=== PATIENT | female | born 1985 | race Caucasian/White ===

== ENCOUNTER 2019-04-23 11:29 | Emergency (ER) | payer BC ==
[~2019-04-23] VITALS: Ht 165.1 cm; Wt 81.6 kg
--- NOTE | 2019-04-23 11:50 | NUR ---
PRESSURE LIKE CHEST DISCOMFORT, SOB SINCE 0700. SEEN @ [facility]. PATIENT A/OX4, NO DISTRESS NOTED, VITALS STABLE. ATTACHED TO THE STAFFING SPECIALIST, KEPT COMFORTABLE.
--- NOTE | 2019-04-23 12:00 | NUR ---
AT BEDSIDE FOR EVAL.
[2019-04-23] MEDS ORDERED: LORAZEPAM 0.5 MG TABLET ONE (12:26)
[2019-04-23] MEDS ORDERED: LORAZEPAM 1 MG TABLET PO ONE (12:30)
[2019-04-23 12:39] LABS: BASOPHILS % (AUTO) 0.7 % (0.0-2.0); EOSINOPHILS % (AUTO) 0.3 % (0.0-6.0); HEMATOCRIT 39 % (33-45); HEMOGLOBIN 13.6 g/dL (11.5-14.8); LYMPHOCYTES % (AUTO) 16.5 % (20.0-44.0); MEAN CORPUSCULAR HGB CONC 35 g/dl (31.0-36.0); MEAN CORPUSCULAR VOLUME 101 fL (82-100); MONOCYTES # (AUTO) 0.7 /CMM (0.1-1.30); MONOCYTES % (AUTO) 11.6 % (2.0-12.0); NEUTROPHILS # (AUTO) 4.4 /CMM (1.8-8.9); NEUTROPHILS % (AUTO) 70.9 % (43.0-81.0); PLATELET COUNT (AUTO) 219 /CMM (150-450); RED BLOOD CELL COUNT(AUTO) 3.88 MIL/uL (4.0-5.2); WHITE BLOOD COUNT (AUTO) 6.2 K/uL (4.3-11.0)
[2019-04-23 12:46] LABS: CALCIUM, SERUM 8.9 mg/dL (8.5-10.1); CARBON DIOXIDE 24 mmol/L (21-32); CHLORIDE 97 mmol/L (98-107); CREATININE 0.7 mg/dL (0.6-1.3); GLUCOSE 85 mg/dL (74-106); POTASSIUM 3.2 mmol/L (3.5-5.1); SODIUM SERUM 135 mmol/L (136-145); UREA NITROGEN, BLOOD 4 mg/dL (7-18)
--- NOTE | 2019-04-23 14:29 | NUR ---
Ambulatory with a steady gait. Denies pain at this time. IV removed. Catheter intact and site benign. Pressure and 4x4 applied to site. No bleeding noted.Patient discharged to home in stable condition. Written and verbal after care instructions given. Patient verbalizes understanding of instruction.
[2019-04-23 14:30] VITALS: BP 128/81
== END 2019-04-23 14:30 | disposition home or self-care (01) ==
LOC: ER 11:29
DX: R00.2 Palpitations (principal)
CPT/HCPCS: 36415; 71045-TC; 80048-TC; 84484-TC; 84703-TC; 85025-TC; 85378-TC